=== PATIENT | male | born 1980 | race Caucasian/White ===

== ENCOUNTER → 2020-01-07 17:33 | Outpatient (CLI) | payer OTHER, SELFPAY ==
--- NOTE | 2020-01-07 17:36 | DI.RAD.S_ITS ---
PROCEDURE: XR SACRUM COCCYX MIN 2V INDICATIONS: Back pain TECHNIQUE: 3 views of the sacrum and coccyx acquired. COMPARISON: [facility], CR, XR LUMBAR SPINE 2-3V, 01/07/2020, 17:29. FINDINGS: Bones: No fractures or dislocations. No suspicious bony lesions. Focal L5-S1 degenerative change is seen. Soft tissues: Visualized bowel gas pattern is normal. No suspicious soft tissue densities. IMPRESSION: No significant abnormality of the sacrum or coccyx can be seen. Dictated by: Néstor Becerra M.D. on 01/07/2020 at 17:46 Approved by: Néstor Becerra M.D. on 01/07/2020 at 17:47
--- NOTE | 2020-01-07 17:36 | DI.RAD.S_ITS ---
PROCEDURE: XR LUMBAR SPINE 2-3V INDICATIONS: Back pain TECHNIQUE: 3 views of the lumbar spine were acquired. COMPARISON: [facility], , XR SACRUM COCCYX MIN 2V, 01/07/2020, 17:29. FINDINGS: Bones: 5 [id number] vertebrae are present. There is minimal levoconvex lumbar scoliotic curvature. No focal AP alignment abnormality is seen. No vertebral body compression fractures. No suspicious bony lesions. There is moderate disc space narrowing seen at L5-S1. The disc heights otherwise appear well-preserved. Soft tissues: Overlying bowel gas pattern is normal. No suspicious soft tissue calcifications. IMPRESSION: Focal L5-S1 degenerative change is seen. Minimal levoconvex lumbar scoliotic curvature. If it would be helpful for clinical management decision making, please consider a dedicated lumbar spine MRI for further evaluation (assuming that there is no contraindication). Dictated by: Néstor Becerra M.D. on 01/07/2020 at 17:45 Approved by: Néstor Becerra M.D. on 01/07/2020 at 17:46
== END ==
PROVIDERS: PCP Family Medicine; Referring Provider Family Medicine; Visit Provider Family Medicine
DX: M54.9 Dorsalgia, unspecified (principal); M47.817 Spondylosis without myelopathy or radiculopathy, lumbosacral region
CPT/HCPCS: 72100; 72220

== ENCOUNTER → 2020-03-18 19:49 | Outpatient (CLI) | payer OTHER, MEDICAID, SELFPAY ==
--- NOTE | 2020-03-18 19:53 | DI.MRI.S_ITS ---
PROCEDURE: MR LUMBAR SPINE WO CON INDICATIONS: Back pain TECHNIQUE: Noncontrast sagittal T1 spin echo and T2 fast echo, sagittal STIR, axial T1 and T2 fast spin echo through the lumbar spine. In cases with scoliosis, additional coronal T2 fast spin echo may be performed. COMPARISON: None. FINDINGS: Image quality: Excellent. Alignment and Curvature: There is normal bony alignment. Bone Marrow: Marrow is of normal overall signal. No acute vertebral body compression fractures. 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 Spinal Cord: Conus medullaris terminates at the L1 level. Visualized cord demonstrates normal signal and size. Paraspinous Soft Tissues: No paravertebral masses. T12-L1: Normal appearance L1-L2: No canal narrowing. No right foraminal stenosis. Mild left foraminal narrowing. L2-L3: Large central disc protrusion. Severe canal stenosis. Complete effacement of both lateral recesses with bilaterally symmetric appearance. Mild right foraminal narrowing with slight nerve root compression. Mild left foraminal stenosis. L3-L4: Posterior annular fissure. Dorsal epidural lipomatosis and moderate canal narrowing. Partial effacement of both lateral recesses with bilaterally symmetric appearance. Mild to moderate right foraminal stenosis with slight nerve root compression. Mild left foraminal narrowing. L4-L5: Posterior annular fissure. Epidural lipomatosis is present. Severe canal narrowing. Partial effacement of both lateral recesses with bilaterally symmetric appearance. Mild bilateral foraminal stenoses L5-S1: Posterior annular fissure. Mild canal narrowing. Lateral recesses appear grossly patent. Moderate right foraminal stenosis with slight nerve root compression. Mild left foraminal narrowing. Questionable/borderline nerve root compression IMPRESSION: Lower lumbar congenital spinal stenosis. Multilevel epidural lipomatosis. Severe canal stenosis at L2-L3 and L4-L5. Diffuse, bilateral foraminal stenosis as detailed above by spinal level Dictated by: Albert Murray M.D. on 03/19/2020 at 8:57 Approved by: Albert Murray M.D. on 03/19/2020 at 9:06
== END ==
PROVIDERS: PCP Family Medicine; Referring Provider Family Medicine; Visit Provider Family Medicine
DX: M54.5 Low back pain (principal); M48.061 Spinal stenosis, lumbar region without neurogenic claudication; M48.07 Spinal stenosis, lumbosacral region; E88.2 Lipomatosis, not elsewhere classified
CPT/HCPCS: 72148

== ENCOUNTER → 2022-03-23 15:51 | Outpatient (CLI) | payer OTHER, MEDICAID, SELFPAY ==
[2022-03-23 18:39] LABS: Hepatitis B Surface Antigen NEGATIVE s/c (NEGATIVE)
[2022-03-23 18:55] LABS: HIV 1 & 2 Ab/Ag 4th Gen Combo NEGATIVE (NEGATIVE); Hep C Virus Ab w/Reflex Quant NEGATIVE s/c (NEGATIVE)
[2022-03-23 20:28] LABS: Urine Chlamydia NOT DETECTED; Urine N gonorrhoeae NOT DETECTED
[2022-03-25 03:37] LABS: HSV 2 IGG AB < 0.91 index (0.00-0.90); HSV1IGG < 0.91 index (0.00-0.90)
[2022-03-25 07:27] LABS: RPR Screen Non Reactive (Non Reactive)
== END ==
PROVIDERS: PCP Family Medicine; Referring Provider Family Medicine; Visit Provider Family Medicine
DX: Z11.3 Encounter for screening for infections with a predominantly sexual mode of transmission (principal)
CPT/HCPCS: 36415; 86592; 86695; 86696; 86803; 87340; 87389; 87491; 87591

== ENCOUNTER → 2024-08-27 16:21 | Outpatient (CLI) | payer OTHER, MEDICAID, SELFPAY ==
--- NOTE | 2024-08-27 16:24 | DI.RAD.S_ITS ---
PROCEDURE: XR HIP W PEL IF DONE LT 2V INDICATIONS: recent injury 2 days ago TECHNIQUE: AP pelvis with lateral view(s) of the left hip(s). COMPARISON: None. FINDINGS: Bones: Mildly displaced fracture of the left femoral neck. Pelvic ring appears intact. No suspicious bony lesions. Soft tissues: The visualized bowel gas pattern is normal. No suspicious soft tissue calcifications. IMPRESSION: Mildly displaced left femoral neck fracture. Dictated by: Charlie Sarmiento M.D. on 08/27/2024 at 16:53 Approved by: Charlie Sarmiento M.D. on 08/27/2024 at 16:54
--- NOTE | 2024-08-27 16:24 | DI.RAD.S_ITS ---
PROCEDURE: XR ANKLE LT MIN 3V INDICATIONS: recent injury 2 days ago TECHNIQUE: 3 views of the ankle were acquired. COMPARISON: None. FINDINGS: Bones: No fractures or dislocations. Ankle mortise is normally aligned. No suspicious bony lesions. Soft tissues: No tibiotalar joint effusion. Achilles tendon appears normal. IMPRESSION: No acute bony abnormality or significant effusion. Dictated by: Angel Felipe M.D. on 08/29/2024 at 0:03 Approved by: Angel Felipe M.D. on 08/29/2024 at 0:14
--- NOTE | 2024-08-27 16:24 | DI.RAD.S_ITS ---
PROCEDURE: XR KNEE LT 3V INDICATIONS: recent injury 2 days ago TECHNIQUE: 2 views of the knee were acquired. COMPARISON: None. FINDINGS: Bones: No fractures or dislocations. Moderate medial and mild to moderate lateral tibiofemoral and patellofemoral compartment narrowing with associated osteophytosis. No suspicious bony lesions. Soft tissues: No joint effusion. No suspicious soft tissue calcifications. IMPRESSION: KL grade 2 tricompartmental osteoarthritis without evidence of acute osseous abnormality. Dictated by: Angel Felipe M.D. on 08/29/2024 at 0:15 Approved by: Angel Felipe M.D. on 08/29/2024 at 0:31
== END ==
PROVIDERS: PCP Family Medicine; Referring Provider Family Medicine; Visit Provider Family Medicine
DX: S72.002A Fracture of unspecified part of neck of left femur, initial encounter for closed fracture (principal); M25.552 Pain in left hip; M25.562 Pain in left knee; M25.572 Pain in left ankle and joints of left foot; M17.12 Unilateral primary osteoarthritis, left knee; X58.XXXA Exposure to other specified factors, initial encounter
CPT/HCPCS: 73502; 73560; 73610

== ENCOUNTER 2024-08-27 16:59 | Emergency (ER) | payer OTHER, MEDICAID, SELFPAY ==
[2024-08-27 17:03] VITALS: BP 129/88; PULSE 83; RESP 20; TEMP 37.3; O2SAT 100; BMI 21.2
[2024-08-27] MEDS: NICOTINE 14 PATCH 14 MG TOP (17:59)
--- NOTE | 2024-08-27 18:13 | ED.FALL ---
HPI - Fall General Chief Complaint: Fall Stated Complaint: pcp ref, lab irreg Time Seen by Provider: 08/27/24 18:13 Source: patient Mode of arrival: Ambulatory History of Present Illness HPI Narrative: 43-year-old gentleman with no significant medical problems fell from a camp chair onto a hard wooden surface suffering right hip pain. This happened approximately 48 hours prior to arrival in the emergency department. He has not been able to bear weight but has been able to use crutches and his other leg to get around. Finally pain was enough that he comes in for further evaluation. He has no other complaints or concerns at this time Related Data Previous Rx's ?Medication ?Instructions ?Recorded ibuprofen 800 mg tablet 800 mg PO TID PRN pain #100 tabs 08/27/24 Allergies Allergy/AdvReac Type Severity Reaction Status Date / Time No Known Drug Allergies Allergy Verified 08/27/24 17:03 Review of Systems Review of Systems Narrative: Pertinent positive and negative findings as per HPI Patient History Medical History Left ankle pain Left knee pain Left hip pain Cognitive impairment Screening for STD (sexually transmitted disease) Depression Abdominal wall contusion Lower back pain Social History Smoking Status: Current every day smoker Tobacco: How many years used: 10 quit status: has quit before alcohol intake: current substance use type: marijuana Smoking Status: Current every day smoker Exam Initial Vital Signs Initial Vital Signs: Vital Signs Temperature 99.1 F 08/27/24 17:03 Pulse Rate 83 08/27/24 17:03 Respiratory Rate 20 08/27/24 17:03 Blood Pressure 129/88 08/27/24 17:03 Pulse Oximetry 100 08/27/24 17:03 Oxygen Delivery Method Room Air 08/27/24 17:03 General: Alert appropriate in no acute distress Respiratory: Able to speak in full sentences, no obvious respiratory distress Skin: No obvious rashes, warm and dry Neurologic: Grossly intact no obvious asymmetries or abnormalities Psych: appropriate insight and affect, cooperative Pelvis does not have significant bruising he does have some tenderness over the right hip, no pain or diminished range of motion of the right knee. He is neurovascularly intact Course Orders Ordered: ED Orders 08/27/24 18:46 CT pelvis wo con Stat Discontinued Medications Nicotine (Nicotine 21 Mg Patch) 21 mg TOP NOW ONE Stop: 08/27/24 17:31 Last Admin: 08/27/24 17:46 Dose: Not Given Documented By: Nicotine (Nicotine 14 Patch) 14 mg TOP NOW ONE Stop: 08/27/24 17:48 Last Admin: 08/27/24 17:59 Dose: 14 mg Documented By: Vital Signs Vital signs: Vital Signs - 8 hr 08/27/24 17:03 Temperature 99.1 F Pulse Rate 83 Respiratory Rate 20 Blood Pressure 129/88 Pulse Oximetry 100 Oxygen Delivery Method Room Air MDM - Fall MDM Narrative Medical decision making narrative: CC: Right hip pain Data collected from: patient Social determinants of health that may influence the patients condition: Patients collective experience some world view includes multiple other avenues of healing beyond allopathic care Differential considered: Contusion, hematoma, fracture, Exam documented above, pertinent findings include: Tenderness over the right hip without significant contusion, most comfortable slightly externally rotated with his knee bent. He can not bear weight Lab tests were not done with today's visit Imaging studies independently reviewed: Mildly displaced left femoral neck fracture. Consultations: 645pm DR Mcghee to review films, requests CT. Discussion: 43-year-old gentleman with a fall greater than 48 hours ago with a right femoral neck fracture displaced with posterior comminution. After discussion with Dr. Ricks here in [place] or recommendation was transfer to [facility] to make sure that he is receiving appropriate care for a high-risk fracture. I spent more than 35 minutes with the patient explaining the fact that his bone is actually broken. Pictures, x-ray and CT scan were reviewed. Reviewed with him the recommendation by our surgeon to go to [facility]. Discussed with him the complications of not treating this fracture. With shared decision-making he agreed to go via BLS ambulance to [facility] ER after being accepted directly. He is still concerned that he will not be seen promptly and it may be better for him to simply go home with his mother, have his shaman see him tomorrow and if there are still problems, to go down to [facility]. Again reiterated respect for his choices but strongly recommend direct transferred [facility]. He continues to have significant questions that we will need to be addressed by the orthopedic surgeons after their evaluation. Discharge Plan Departure Patient Disposition: [facility] Clinical Impression: Femoral neck fracture Qualifiers: Encounter type: initial encounter Fracture type: closed Laterality: right Qualified Code(s): S72.001A - Fracture of unspecified part of neck of right femur, initial encounter for closed fracture Prescriptions: No Action ibuprofen 800 mg tablet 800 mg PO TID PRN (Reason: pain) Qty: 100 0RF Referrals: Carl Godinez DO [Primary Care Provider, [facility]]
--- NOTE | 2024-08-27 18:46 | DI.CT.S_ITS ---
PROCEDURE: CT PEL WO CON INDICATIONS: attention L hip, pro-op planning TECHNIQUE: Noncontrast 3 mm axial sections acquired through the bony pelvis, with coronal and sagittal reformatting. COMPARISON: [facility], CR, XR HIP W PEL LT 2V, 08/27/2024, 16:30. FINDINGS: Image quality: Excellent. Bones: Left hip intertrochanteric fracture. Minimal angulation and displacement. No dislocation. No suspicious osseous lesion. Soft tissues: No free fluid. Normal appendix. Distended bladder. Bilateral hydroceles. IMPRESSION: Left hip intertrochanteric fracture. Dictated by: Dre Quintero M.D. on 08/27/2024 at 19:38 Approved by: Dre Quintero M.D. on 08/27/2024 at 19:41
[2024-08-27 20:59] VITALS: PULSE 91; O2SAT 98
[2024-08-27 21:00] VITALS: BP 130/79; PULSE 86; RESP 17; O2SAT 98
--- NOTE | 2024-08-27 21:06 | PC.NURSE ---
Left lower extremity assessed. Rotaion a shortening present. left dorsal pedis pulse present. CMS intact. Cap refill <2
--- NOTE | 2024-08-27 21:33 | PC.NURSE ---
PT PULLED OFF 14MG NICOTINE PATCH. WANTS A HIGHER DOSE. 21MG PATCH ORDERED, SEE MAR.
[2024-08-27] MEDS: NICOTINE 21 MG PATCH TOP (21:40)
== END 2024-08-27 21:45 | disposition short-term general hospital (02) ==
PROVIDERS: Emergency Provider Emergency Medicine; PCP Family Medicine
DX: S72.142A Displaced intertrochanteric fracture of left femur, initial encounter for closed fracture (principal); W07.XXXA Fall from chair, initial encounter; S72.002A Fracture of unspecified part of neck of left femur, initial encounter for closed fracture; M25.552 Pain in left hip; M25.562 Pain in left knee; M25.572 Pain in left ankle and joints of left foot; M17.12 Unilateral primary osteoarthritis, left knee; X58.XXXA Exposure to other specified factors, initial encounter
CPT/HCPCS: 72192; 73502; 73560; 73610; 99283; 99284

== ENCOUNTER → 2024-09-11 14:48 | Outpatient (CLI) | payer OTHER, SELFPAY ==
--- NOTE | 2024-09-11 14:52 | DI.RAD.S_ITS ---
PROCEDURE: XR HIP W PEL IF DONE LT 2V INDICATIONS: Follow-up fracture TECHNIQUE: AP pelvis with lateral view(s) of the left hip(s). COMPARISON: [facility], CR, XR HIP W PEL LT 2V, 08/27/2024, 16:30. FINDINGS: Bones: Post ORIF changes are seen in left femoral neck. No evidence of hardware loosening or failure. Interval slight healing at patient's known left femoral neck fracture site with slightly increased sclerosis. No new fracture or dislocation. Left hip joint osteoarthritis. No evidence of avascular necrosis of femoral head. Pelvic ring is intact. Pelvic ring appears intact. No suspicious bony lesions. Soft tissues: The visualized bowel gas pattern is normal. No suspicious soft tissue calcifications. IMPRESSION: Post ORIF changes in left femoral neck with interval slight healing at left femoral neck fracture site. No new fracture or dislocation. No gross hardware loosening or failure. No evidence of avascular necrosis of femoral head. Dictated by: Jose Titus M.D. on 09/12/2024 at 10:47 Approved by: Jose Titus M.D. on 09/12/2024 at 10:48
--- NOTE | 2024-09-11 14:52 | DI.RAD.S_ITS ---
PROCEDURE: XR FEMUR LT MIN 2V INDICATIONS: Follow-up fracture TECHNIQUE: 4 views of the femur were acquired. COMPARISON: [facility], CT, CT PEL WO CON, 08/27/2024, 19:07. [facility], CR, XR HIP W PEL LT 2V, 09/11/2024, 14:50. FINDINGS: Bones: Post ORIF changes are again seen in left femoral neck. No evidence of hardware loosening or failure. Healing at patient's known left femoral neck fracture site is seen. No new fracture or dislocation. Left hip joint osteoarthritis. No evidence of avascular necrosis of femoral head. No suspicious bony lesions. Soft tissues: No suspicious soft tissue calcifications or masses. IMPRESSION: Post ORIF changes in left femoral neck with healing left femoral neck fracture. No new fracture or dislocation. No gross hardware loosening or failure. Dictated by: Jose Titus M.D. on 09/12/2024 at 10:36 Approved by: Jose Titus M.D. on 09/12/2024 at 10:46
== END ==
PROVIDERS: PCP Family Medicine; Referring Provider Family Medicine; Visit Provider Family Medicine
DX: S72.002A Fracture of unspecified part of neck of left femur, initial encounter for closed fracture (principal); M16.12 Unilateral primary osteoarthritis, left hip; X58.XXXA Exposure to other specified factors, initial encounter; Z96.7 Presence of other bone and tendon implants
CPT/HCPCS: 73502; 73552